=== PATIENT | male | born 1990 | race Caucasian/White ===

== ENCOUNTER 2018-08-27 20:20 | Emergency (ER) | payer OTHER, SELFPAY ==
[2018-08-27] MEDS ORDERED: BUPIVACAINE 0.5% PF 10 ML VIAL ONE (21:21)
[2018-08-27] MEDS ORDERED: LIDOCAINE 1% 20 ML MDV ONE (21:21)
[2018-08-27] MEDS ORDERED: HYDROCODONE/APAP 10/325 TAB ONE (22:01)
--- NOTE | 2018-08-27 22:39 | ER ---
Nurse's Notes [facility] Name: Dameon Amato III Age: 27 yrs Sex: Male : 1990 Arrival Date: 08/27/2018 Time: 20:20 Bed 14 Private MD: Diagnosis: Cutaneous abscess of buttock Presentation: 08/27 20:39 Presenting complaint: Patient states: "I have a possible staff infection on my left jd3 butt cheek. what skyler it is it popped because it is right on the pant line.". Transition of care: patient was not received from another setting of care. Onset of symptoms was August 27, 2018. Risk Assessment: Do you want to hurt yourself or someone else? Patient reports no desire to harm self or others. Initial Sepsis Screen: Does the patient meet any 2 criteria? No. Patient's initial sepsis screen is negative. Does the patient have a suspected source of infection? No. Patient's initial sepsis screen is negative. Care prior to arrival: None. 20:39 Method Of Arrival: Ambulatory j 20:39 Acuity: VALDO 3 jd3 Triage Assessment: 20:53 General: Appears in no apparent distress. Behavior is calm, cooperative. ak1 Historical: - Allergies: 20:41 No Known Allergies; jd3 - Home Meds: 20:41 Flonase Nasal [Active]; jd3 - PMHx: 20:41 None; jd3 - PSHx: 20:41 right shoulder; Hernia repair; wisdom teeth; jd3 - Immunization history:: Adult Immunizations up to date. - Social history:: Smoking status: Patient/guardian denies using tobacco. - Ebola Screening: : Patient negative for fever greater than or equal to 101.5 degrees Fahrenheit, and additional compatible Ebola Virus Disease symptoms. Screenin:53 Abuse screen: Denies threats or abuse. Denies injuries from another. Nutritional ak1 screening: No deficits noted. Tuberculosis screening: No symptoms or risk factors identified. Fall Risk None identified. Assessment: 21:25 General: Appears in no apparent distress. Behavior is calm, cooperative. Pain: ak1 Complains of pain in left lower back and left gluteus yariel. Neuro: No deficits noted. Cardiovascular: No deficits noted. Respiratory: No deficits noted. GI: No signs and/or symptoms were reported involving the gastrointestinal system. : No signs and/or symptoms were reported regarding the genitourinary system. EENT: No signs and/or symptoms were reported regarding the EENT system. Derm: Reports abscess to left buttocks for 3 days. pt stated he "squeezed" the site and had drainage. Musculoskeletal: No signs and/or symptoms reported regarding the musculoskeletal system. 22:49 Reassessment: Patient appears in no apparent distress at this time. No changes from ak1 previously documented assessment. Patient and/or family updated on plan of care and expected duration. Pain level reassessed. pt wound to left buttock dressed with 4X4 and Tegaderm. pt informed of follow up with general sx. Vital Signs: 20:41 BP 148 / 92; Pulse 98; Resp 18 S; Temp 99.0(O); Pulse Ox 99% on R/A; Weight 108.86 kg jd3 (R); Height 6 ft. 1 in. (185.42 cm) (R); Pain 7/10; 21:39 BP 133 / 89; Pulse 88; Resp 18; Temp 99; Pulse Ox 99% on R/A; ak1 22:49 BP 140 / 82; Pulse 87; Resp 18; Temp 98.9(O); Pulse Ox 99% on R/A; Pain 6/10; ak1 20:41 Body Mass Index 31.66 (108.86 kg, 185.42 cm) jd3 ED Course: 20:20 Patient arrived in ED. ag3 20:40 Triage completed. jd3 20:42 Arm band placed on. jd3 20:43 Elisabeth Rees, SOPHIA is Primary Nurse. ak1 20:44 Santosh Lyons PA is PHCP. m 20:45 Gray Tamayo MD is Attending Physician. jmm 20:53 Patient has correct armband on for positive identification. Placed in gown. Bed in low ak1 position. Call light in reach. Side rails up X 1. Adult w/ patient. Pulse ox on. NIBP on. 21:25 Assist provider with I \\T\\ D: of an abscess on left Set up I\\T\\D tray. ak 1 22:38 Jackson Oh MD is Referral Physician. [facility] 22:49 Patient did not have IV access during this emergency room visit. ak1 Administered Medications: 21:24 Drug: Lidocaine (1 %) 20 ml Volume: 20 ml; Route: Infiltration; ak1 21:24 Drug: Marcaine (0.5 %) 10 ml Volume: 10 ml; Route: Infiltration; ak1 21:48 Drug: Lander 10 mg-325 mg 1 tabs Route: PO; ak1 22:34 Follow up: Response: No adverse reaction; Pain is decreased ak1 22:48 Drug: Bactrim (160 mg-800 mg (DS) 1 tablet Route: PO; ak1 22:49 Follow up: Response: No adverse reaction; Medication administered at discharge. ak1 22:48 Drug: Cephalexin 500 mg Route: PO; ak1 22:49 Follow up: Response: No adverse reaction; Medication administered at discharge. ak1 Outcome: 22:38 Discharge ordered by . lucita 22:49 Discharged to home ambulatory, with family. ak1 22:49 Condition: good 22:49 Discharge instructions given to patient, family, Instructed on discharge instructions, follow up and referral plans. no drinking with medication, no driving heavy equipment, medication usage, wound care, Demonstrated understanding of instructions, follow-up care, medications, wound care, Prescriptions given X 3. 22:54 Patient left the ED. ak1 Signatures: Santosh Lyons PA PA jmm Krenek, Amber RN RN ak1 Sanjiv Mandujano RN RN Bonnie Allan ag3 Corrections: (The following items were deleted from the chart) 20:42 20:39 Presenting complaint: Patient states: "I have a possible staff infection on my jd3 left butt cheek." codi
--- NOTE | 2018-08-27 22:39 | EDPHYS ---
Physician Documentation [facility] Age[facility] 27 [facility] Sex: Male : 1990 Arrival Date: 08/27/2018 Time: 20:20 Bed 14 Private MD: ED Physician Gray Tamayo HPI: 08/27 21:00 This 27 yrs old Male presents to ER via Ambulatory with complaints of buttock jmm swelling. 21:00 The patient presents with cellulitis of the left gluteus yariel. jmm 21:00 Onset: The symptoms/episode began/occurred gradually, 4 day(s) ago. Possible cause(s): jmm unknown. Associated signs and symptoms: Pertinent positives: drainage, Pertinent negatives: fever. Modifying factors: the symptoms are alleviated by nothing, the symptoms are aggravated by nothing. The patient has experienced a previous episode, approximately 1 months ago. Historical: - Allergies: 20:41 No Known Allergies; jd3 - Home Meds: 20:41 Flonase Nasal [Active]; jd3 - PMHx: 20:41 None; jd3 - PSHx: 20:41 right shoulder; Hernia repair; wisdom teeth; jd3 - Immunization history:: Adult Immunizations up to date. - Social history:: Smoking status: Patient/guardian denies using tobacco. - Ebola Screening: : Patient negative for fever greater than or equal to 101.5 degrees Fahrenheit, and additional compatible Ebola Virus Disease symptoms. ROS: 21:00 Constitutional: Negative for fever, chills, and weight loss, Cardiovascular: Negative jmm for chest pain, palpitations, and edema, Respiratory: Negative for shortness of breath, cough, wheezing, and pleuritic chest pain. 21:00 Skin: Positive for erythema, swelling. 21:00 All other systems are negative. Exam: 21:00 Constitutional: This is a well developed, well nourished patient who is awake, alert, jmm and in no acute distress. Head/Face: atraumatic. Eyes: EOMI, no conjunctival erythema appreciated ENT: Moist Mucus Membranes Neck: Trachea midline, Supple Chest/axilla: Normal chest wall appearance and motion. Cardiovascular: Regular rate and rhythm. No edema appreciated Respiratory: Normal respirations, no respiratory distress appreciated Abdomen/GI: Non distended, soft Back: Normal ROM 21:00 Skin: erythema and induration noted to the left buttock, draining abscess noted. 21:00 Neuro: Orientation: is normal, Mentation: is normal, Memory: is normal. 21:00 Psych: Behavior/mood is pleasant, cooperative. Vital Signs: 20:41 BP 148 / 92; Pulse 98; Resp 18 S; Temp 99.0(O); Pulse Ox 99% on R/A; Weight 108.86 kg jd3 (R); Height 6 ft. 1 in. (185.42 cm) (R); Pain 7/10; 21:39 BP 133 / 89; Pulse 88; Resp 18; Temp 99; Pulse Ox 99% on R/A; ak1 22:49 BP 140 / 82; Pulse 87; Resp 18; Temp 98.9(O); Pulse Ox 99% on R/A; Pain 6/10; ak1 20:41 Body Mass Index 31.66 (108.86 kg, 185.42 cm) jd3 Procedures: 22:36 I \T\ D: Incision and drainage was performed for an abscess of the left lower back jmm Prepped with Betadine, Anesthetized with 10 ml's 1% Lidocaine. Incised with #11 blade. Drained moderate amount purulent fluid. Packed with iodoform gauze, Dressing: sterile 4x4 gauze, the patient tolerated the procedure well. MDM: 21:00 Patient medically screened. [facility] 22:36 Data reviewed: vital signs, nurses notes. Counseling: I had a detailed discussion with [facility] the patient and/or guardian regarding: the historical points, exam findings, and any diagnostic results supporting the discharge/admit diagnosis, the need for outpatient follow up, to return to the emergency department if symptoms worsen or persist or if there are any questions or concerns that arise at home. 22:36 ED course: Patient is alert and non toxic in appearance in the ED. Abscess was drained [facility] and patient prescribed oral antibiotics. Patient advised to follow up with gen surgery for reevaluation and otherwise given strict return precautions. Patient understood and agrees with the plan of care. . Administered Medications: 21:24 Drug: Lidocaine (1 %) 20 ml Volume: 20 ml; Route: Infiltration; ak1 21:24 Drug: Marcaine (0.5 %) 10 ml Volume: 10 ml; Route: Infiltration; ak1 21:48 Drug: Maunie 10 mg-325 mg 1 tabs Route: PO; ak1 22:34 Follow up: Response: No adverse reaction; Pain is decreased ak1 22:48 Drug: Bactrim (160 mg-800 mg (DS) 1 tablet Route: PO; ak1 22:49 Follow up: Response: No adverse reaction; Medication administered at discharge. ak1 22:48 Drug: Cephalexin 500 mg Route: PO; ak1 22:49 Follow up: Response: No adverse reaction; Medication administered at discharge. ak1 Disposition: 08/27/18 22:38 Discharged to Home. Impression: Cutaneous abscess of buttock. - Condition is Stable. - Discharge Instructions: Skin Abscess, Incision and Drainage. - Prescriptions for Cephalexin 500 mg Oral Capsule - take 1 capsule by ORAL route every 6 hours for 10 days; 40 capsule. Ultram 50 mg Oral Tablet - take 1 tablet by ORAL route every 6 hours As needed; 30 tablet. Bactrim DS 800- 160 mg Oral Tablet - take 1 tablet by ORAL route every 12 hours for 10 days; 20 tablet. - Medication Reconciliation Form, Thank You Letter, Antibiotic Education, Prescription Opioid Use, Work release form form. - Follow up: Jackson Oh MD; When: 2 - 3 days; Reason: Recheck today's complaints, Continuance of care, Re-evaluation by your physician. Addendum: 08/31/2018 16:37 Co-signature as Attending Physician, Gray Tamayo MD I agree with the assessment and t w4 plan of care. Signatures: Santosh Lyons PA PA jmm Krenek, Amber, RN RN ak1 Sanjiv Mandujano RN RN jd3 Gray Tamayo MD MD tw4 Corrections: (The following items were deleted from the chart) 08/27 22:34 22:31 This 27 yrs old Male presents to ER via Ambulatory with complaints of [facility] buttock swelling. [facility] 22:54 22:38 08/27/2018 22:38 Discharged to Home. Impression: Cutaneous abscess of buttock. ak1 Condition is Stable. Forms are Medication Reconciliation Form, Thank You Letter, Antibiotic Education, Prescription Opioid Use. Follow up: Jackson Oh; When: 2 - 3 days; Reason: Recheck today's complaints, Continuance of care, Re-evaluation by your physician. marianam
[2018-08-27] MEDS ORDERED: CEPHALEXIN 250 MG CAP ONE (22:53)
[2018-08-27] MEDS ORDERED: SMZ./TMP. 800/160 MG TABLET ONE (22:53)
== END 2018-08-27 22:54 | disposition home or self-care (01) ==
LOC: ER 20:20
PROC: 0J990ZZ Drainage of Buttock Subcutaneous Tissue and Fascia, Open Approach (ICD-10-PCS; principal; 2018-08-27)
DX: L02.31 Cutaneous abscess of buttock (principal)
CPT/HCPCS: 99284

== ENCOUNTER → 2023-03-19 | Emergency (ER) | payer BC ==
[~2023-03-19] MED LIST: HYDROCODONE/APAP 10/325 TAB ONE; HYDROMORPHONE HCL 1 MG/ML INJ ONE; KETOROLAC 30 MG/ML INJ ONE; METOCLOPRAMIDE 10 MG/2mL INJ ONE; MORPHINE 4 MG/ML SYR ONE; NA CHLORIDE 0.9% 1,000 ML ONE; ONDANSETRON 4 MG/2 ML VIAL ONE
[2023-03-19 11:15] LABS: Hematocrit 48.4 % (39.6-49.0); Lymphocytes % 12.9 % (15.3-44.8); MCV 87.1 fL (80-100); MPV 7.3 fL (7.6-11.3); Platelets 237 thou/uL (152-406); RBC Red Blood Cell Count 5.55 M/uL (4.33-5.43)
--- NOTE | 2023-03-19 11:26 | RAD REPORT ---
EXAM DESCRIPTION: CT - Stone Protocol - 03/19/2023 10:59 am CLINICAL HISTORY: FLANK PAIN COMPARISON: No comparisons TECHNIQUE: Thin cut axial CT imaging of the abdomen and pelvis was performed without IV contrast. Mu ltiplanar reformats were generated and reviewed. All CT scans are performed using dose optimization technique as appropriate and may include automated exposure control or mA/KV adjustment according to patient size. FINDINGS: No suspicious findings in the lung bases. The liver, spleen, adrenal glands, and pancreas show no suspicious findings. Gallbladder shows mildly echogenic sludge, without radiopaque calculi. It is slightly contracted. Symmetric renal contour, without suspicious parenchymal findings within limits of noncontrast techniq ue. Mild right hydroureteronephrosis. 3 millimeter right distal ureter calculus, within 2-3 cm above the ureterovesical junction. Other nonobstructing right renal calculi, largest measuring 5 mm at the right interpolar region. No dilated bowel loops or bowel wall thickening. No free air, free fluid or inflammatory stranding. S mall right inguinal hernia containing fat. No mass or bulky lymphadenopathy. The urinary bladder is d ecompressed limiting evaluation. No suspicious bony findings. IMPRESSION: Mild right hydroureteronephrosis. 3 millimeter right distal ureter calculus, within 2-3 cm above the ureterovesical junction. Other nonobstructing right renal calculi up to 5 mm. The findings were communicated to Bo Navas on 03/19/2023 at 11:23 hours.
[2023-03-19 11:34] LABS: Albumin 4.1 g/dL (3.4-5.0); Potassium 3.8 mEq/L (3.5-5.1); Protein, Total 7.5 g/dL (6.4-8.2)
[2023-03-19 12:53] LABS: Specific Gravity 1.011 (1.005-1.030); Urine Bacteria None Seen /HPF (<20); Urine Bilirubin NEGATIVE (Negative); Urine Blood 3+ (OVER) (Negative); Urine Clarity Turbid (Clear); Urine Color Light-Yellow (Yellow); Urine Glucose NEGATIVE (Negative); Urine Mucus 4+ /HPF (None Seen); Urine Protein NEGATIVE (Negative); Urine RBC >50 /HPF (None Seen); Urine Urobilinogen Normal (Normal); Urine pH 5.5 (5.0-7.0)
--- NOTE | 2023-03-19 13:43 | ER ---
Nurse's Notes [facility] Name: Dameon Amato III Age: 32 yrs Sex: Male : 1990 Arrival Date: 03/19/2023 Time: 10:44 Bed 8 Private MD: Diagnosis: 3 mm right-sided distal ureter kidney stone Presentation: 03/19 10:53 Chief complaint: Severe right flank pain, difficulty urinating, blood in urine, and N/V hb since this morning. Sent from urgent care, received Toradol and Zofran PIECE MARKER SMALL ARMS per mother at bedside. Coronavirus screen: At this time, the client does not indicate any symptoms associated with coronavirus-19. Ebola Screen: No symptoms or risks identified at this time. Initial Sepsis Screen: Does the patient meet any 2 criteria? No. Patient's initial sepsis screen is negative. Does the patient have a suspected source of infection? No. Patient's initial sepsis screen is negative. Risk Assessment: Do you want to hurt yourself or someone else? Patient reports no desire to harm self or others. Onset of symptoms was March 19, 2023. 10:53 Method Of Arrival: Ambulatory hb 10:53 Acuity: VALDO 3 hb Historical: - Allergies: 10:55 Sulfa (Sulfonamide Antibiotics); hb 10:55 Morphine; hb - Home Meds: 10:55 Flonase Nasal [Active]; hb - PMHx: 10:55 Kidney stone; hb - PSHx: 10:55 Hernia Repair; Shoulder - Right; hb - Immunization history:: Adult Immunizations up to date. - Social history:: Smoking status: Patient denies any tobacco usage or history of. Screenin:16 [facility] ED Fall Risk Assessment (Adult) History of falling in the last 3 months, kc6 including since admission No falls in past 3 months (0 pts) Confusion or Disorientation No (0 pts) Intoxicated or Sedated No (0 pts) Impaired Gait No (0 pts) Mobility Assist Device Used No (0 pt) Altered Elimination No (0 pt) Score/Fall Risk Level 0 - 2 = Low Risk. Abuse screen: Denies threats or abuse. Denies injuries from another. Nutritional screening: No deficits noted. Tuberculosis screening: No symptoms or risk factors identified. Assessment: 11:40 General: Appears in no apparent distress. uncomfortable, well groomed, well developed, kc6 Behavior is cooperative, appropriate for age, crying, restless. Pain: Complains of pain in back and abdomen Pain does not radiate. Pain currently is 10 out of 10 on a pain scale. Noted to be crying, grimacing, guarding, moaning, restless. Neuro: Level of Consciousness is awake, alert, obeys commands, Oriented to person, place, time, situation, Appropriate for age. Cardiovascular: Capillary refill < 3 seconds. Respiratory: Airway is patent Trachea midline Respiratory effort is even, unlabored, Respiratory pattern is regular, symmetrical. GI: Bowel sounds present X 4 quads. Abd is soft X 4 quads Reports nausea, vomiting, Patient currently denies diarrhea. : No signs and/or symptoms were reported regarding the genitourinary system. EENT: No signs and/or symptoms were reported regarding the EENT system. Derm: No signs and/or symptoms reported regarding the dermatologic system. Skin is intact, is healthy with good turgor, Skin is pink, warm \T\ dry. Musculoskeletal: No signs and/or symptoms reported regarding the musculoskeletal system. Circulation, motion, and sensation intact. Capillary refill < 3 seconds, Range of motion: intact in all extremities. 11:51 General: Appears in no apparent distress. uncomfortable. Pain: Noted to be crying, kc6 grimacing, guarding, moaning, restless. GI: Pt is actively vomiting bile. 14:11 Reassessment: Patient appears in no apparent distress at this time. No changes from kc6 previously documented assessment. Patient and/or family updated on plan of care and expected duration. Pain level reassessed. Patient is alert, oriented x 3, equal unlabored respirations, skin warm/dry/pink. Vital Signs: 10:53 BP 163 / 119; Pulse 75; Resp 18; Temp 98.3; Pulse Ox 100% on R/A; Weight 113.4 kg; hb Height 6 ft. 1 in. ; Pain 10/10; 11:41 BP 168 / 111; Pulse 78; Resp 19 S; Pulse Ox 100% on R/A; kc6 12:35 BP 168 / 103; kc6 13:01 BP 149 / 95; Pulse 82; Pulse Ox 95% ; ll1 14:12 BP 158 / 98; Pulse 80; Resp 16 S; Pulse Ox 98% on R/A; Pain 4/10; kc6 10:53 Body Mass Index 32.98 (113.40 kg, 185.42 cm) hb 10:53 Pain Scale: Adult hb 14:12 Pain Scale: Adult kc6 ED Course: 10:46 Patient arrived in ED. mr 10:47 Bo Navas MD is Attending Physician. kdr 10:55 Triage completed. hb 10:56 Arm band placed on. hb 10:59 CT Stone Protocol In Process Unspecified. EDMS 11:15 Ni Santana, RN is Primary Nurse. kc6 11:16 Patient has correct armband on for positive identification. Bed in low position. Call kc6 light in reach. Side rails up X 1. Adult w/ patient. Client placed on continuous cardiac and pulse oximetry monitoring. NIBP monitoring applied. 11:16 Inserted saline lock: 20 gauge in left antecubital area, using aseptic technique. Blood kc6 collected. Patient maintains SpO2 saturation greater than 95% on room air. 14:12 No provider procedures requiring assistance completed. IV discontinued, intact, kc6 bleeding controlled, No redness/swelling at site. Pressure dressing applied. Administered Medications: 11:15 Drug: NS 0.9% IV 1000 ml IV at 1 bolus Per protocol; 1000 mL bolus Route: IV; Rate: 1 kc6 bolus; Site: left antecubital; 11:15 Drug: morphine IVP or IV 4 mg IVP once over 4 mins Route: IVP; Infused Over: 4 mins; kc6 Site: left antecubital; 11:41 Follow up: Response: No adverse reaction; Nausea is increased; Vomiting decreased kc6 11:16 Drug: Ondansetron IVP 4 mg IVP once; over 2 minutes Route: IVP; Site: left antecubital; kc6 11:41 Follow up: Response: No adverse reaction; Nausea unchanged; Vomiting decreased kc6 11:51 Drug: Ketorolac IVP 15 mg IVP once Route: IVP; Site: left antecubital; kc6 12:35 Follow up: Response: No adverse reaction; Pain is unchanged, physician notified kc6 11:51 Drug: metoCLOPramide IVP 10 mg IVP once; over 1 to 2 minutes Route: IVP; Site: left kc6 antecubital; 12:35 Follow up: Response: No adverse reaction; Nausea is decreased; Vomiting decreased kc6 12:35 Drug: HYDROmorphone IVP 1 mg IVP once Route: IVP; Site: left antecubital; kc6 14:02 Follow up: Response: No adverse reaction; Pain is decreased; RASS: Alert and Calm (0) kc6 14:02 Drug: Juncos PO 10 mg-325 mg 1 tabs PO once Route: PO; kc6 14:11 Follow up: Response: No adverse reaction; Pain is decreased kc6 Medication: 14:12 VIS not applicable for this client. kc6 Outcome: 13:43 Discharge ordered by . kdr 14:12 Discharged to home ambulatory, with family, kc6 14:12 Condition: improved 14:12 Discharge instructions given to patient, Instructed on discharge instructions, follow up and referral plans. medication usage, Demonstrated understanding of instructions, follow-up care, medications, Prescriptions given X 4, 14:12 Patient left the ED. kc6 Signatures: Dispatcher [employer] EDMS Bo Navas MD MD kdr Rivera, Mary, Marky Negro mr Roxanna Dubon, RN RN hb Mone Stephen RN RN ll1 Ni Santana, RN RN kc6 Corrections: (The following items were deleted from the chart) 10:56 10:55 PSHx: None; hb hb
--- NOTE | 2023-03-19 13:43 | EDPHYS ---
Physician Documentation [facility] Name: Dameon Amato III Age: 32 yrs Sex: Male : 1990 Arrival Date: 03/19/2023 Time: 10:44 Bed 8 Private MD: ED Physician Bo Navas HPI: 03/19 16:51 This 32 yrs old Male presents to ER via Ambulatory with complaints of Possible Kidney kdr Stone. 16:51 We did patient presents to the ED with severe right flank pain and difficulty kdr urinating. He also states he is has had blood in his urine. In addition he had some nausea and vomiting since this morning. This all began about 2 hours prior to arrival. Patient had been seen in urgent care and received Toradol and Zofran prior to arrival. Patient's mother is at the bedside. Patient has a history of kidney stones.. Onset: The symptoms/episode began/occurred suddenly, 2 hour(s) ago. Severity of symptoms: At their worst the symptoms were moderate severe incapacitating just prior to arrival, in the emergency department the symptoms are unchanged. The patient has experienced similar episodes in the past, a few times. The patient has not recently seen a physician. Historical: - Allergies: 10:55 Sulfa (Sulfonamide Antibiotics); hb 10:55 Morphine; hb - Home Meds: 10:55 Flonase Nasal [Active]; hb - PMHx: 10:55 Kidney stone; hb - PSHx: 10:55 Hernia Repair; Shoulder - Right; hb - Immunization history:: Adult Immunizations up to date. - Social history:: Smoking status: Patient denies any tobacco usage or history of. ROS: 16:51 Constitutional: Negative for fever, chills, and weight loss, Eyes: Negative for injury, kdr pain, redness, and discharge, ENT: Negative for injury, pain, and discharge, Neck: Negative for injury, pain, and swelling, Cardiovascular: Negative for chest pain, palpitations, and edema, Respiratory: Negative for shortness of breath, cough, wheezing, and pleuritic chest pain, Back: Negative for injury and pain, MS/Extremity: Negative for injury and deformity, Skin: Negative for injury, rash, and discoloration, Neuro: Negative for headache, weakness, numbness, tingling, and seizure activity. Psych: Negative for depression, anxiety, suicide ideation, homicidal ideation, and hallucinations, Allergy/Immunology: Negative for hives, rash, and allergies, Endocrine: Negative for neck swelling, polydipsia, polyuria, polyphagia, and marked weight changes, Hematologic/Lymphatic: Negative for swollen nodes, abnormal bleeding, and unusual bruising, 16:51 Abdomen/GI: Positive for nausea and vomiting, Flank pain right, Negative for diarrhea, constipation, abdominal cramps, abdominal distension, anorexia, dysphagia, hematemesis, black/tarry stool, rectal pain, rectal bleeding, bowel incontinence, 16:51 : Positive for hematuria, Negative for urinary frequency, small amounts, burning with urination, difficulty urinating, bladder incontinence, foul smelling urine, penile discharge, Exam: 16:51 Constitutional: This is a well developed, well nourished patient who is awake, alert, kdr and in moderate distress. Head/Face: Normocephalic, atraumatic. Eyes: Pupils equal round and reactive to light, extra-ocular motions intact. Lids and lashes normal. Conjunctiva and sclera are non-icteric and not injected. Cornea within normal limits. Periorbital areas with no swelling, redness, or edema. Neck: Trachea midline, no thyromegaly or masses palpated, and no cervical lymphadenopathy. Supple, full range of motion without nuchal rigidity, or vertebral point tenderness. No Meningismus. Chest/axilla: Normal chest wall appearance and motion. Nontender with no deformity. No lesions are appreciated. Cardiovascular: Regular rate and rhythm with a normal S1 and S2. No gallops, murmurs, or rubs. Normal PMI, no JVD. No pulse deficits. Respiratory: Lungs have equal breath sounds bilaterally, clear to auscultation and percussion. No rales, rhonchi or wheezes noted. No increased work of breathing, no retractions or nasal flaring. Back: No spinal tenderness. No costovertebral tenderness. Full range of motion. Skin: Warm, dry with normal turgor. Normal color with no rashes, no lesions, and no evidence of cellulitis. MS/ Extremity: Pulses equal, no cyanosis. Neurovascular intact. Full, normal range of motion. Neuro: Awake and alert, GCS 15, oriented to person, place, time, and situation. Cranial nerves II-XII grossly intact. Motor strength 5/5 in all extremities. Sensory grossly intact. Cerebellar exam normal. Normal gait. Psych: Awake, alert, with orientation to person, place and time. Behavior, mood, and affect are within normal limits. 16:51 Abdomen/GI: Inspection: obese Right flank pain, Vital Signs: 10:53 BP 163 / 119; Pulse 75; Resp 18; Temp 98.3; Pulse Ox 100% on R/A; Weight 113.4 kg; hb Height 6 ft. 1 in. ; Pain 10/10; 11:41 BP 168 / 111; Pulse 78; Resp 19 S; Pulse Ox 100% on R/A; kc6 12:35 BP 168 / 103; kc6 13:01 BP 149 / 95; Pulse 82; Pulse Ox 95% ; ll1 14:12 BP 158 / 98; Pulse 80; Resp 16 S; Pulse Ox 98% on R/A; Pain 4/10; kc6 10:53 Body Mass Index 32.98 (113.40 kg, 185.42 cm) hb 10:53 Pain Scale: Adult hb 14:12 Pain Scale: Adult kc6 MDM: 13:43 Patient medically screened. kdr 16:51 Data reviewed: vital signs, nurses notes, lab test result(s), radiologic studies. ED kdr course: The patient had considerable improvement with the interventions given. The patient felt stable and able to go home with the prescribed medication regimen. The patient was otherwise happy with the care provided the plan for discharge and follow-up. 03/19 10:48 Order name: CBC with Diff; Complete Time: 13:04 kdr 03/19 10:48 Order name: CMP; Complete Time: 13:04 kdr 03/19 10:48 Order name: Lipase; Complete Time: 13:04 kdr 03/19 12:35 Order name: Urinalysis w/ reflexes; Complete Time: 13:04 kc6 03/19 10:48 Order name: CT Stone Protocol; Complete Time: 13:04 kdr 03/19 10:48 Order name: IV Saline Lock; Complete Time: 11:15 kdr 03/19 10:48 Order name: Labs collected and sent; Complete Time: 11:15 kdr Administered Medications: 11:15 Drug: NS 0.9% IV 1000 ml IV at 1 bolus Per protocol; 1000 mL bolus Route: IV; Rate: 1 kc6 bolus; Site: left antecubital; 11:15 Drug: morphine IVP or IV 4 mg IVP once over 4 mins Route: IVP; Infused Over: 4 mins; kc6 Site: left antecubital; 11:41 Follow up: Response: No adverse reaction; Nausea is increased; Vomiting decreased kc6 11:16 Drug: Ondansetron IVP 4 mg IVP once; over 2 minutes Route: IVP; Site: left antecubital; kc6 11:41 Follow up: Response: No adverse reaction; Nausea unchanged; Vomiting decreased kc6 11:51 Drug: Ketorolac IVP 15 mg IVP once Route: IVP; Site: left antecubital; kc6 12:35 Follow up: Response: No adverse reaction; Pain is unchanged, physician notified kc6 11:51 Drug: metoCLOPramide IVP 10 mg IVP once; over 1 to 2 minutes Route: IVP; Site: left kc6 antecubital; 12:35 Follow up: Response: No adverse reaction; Nausea is decreased; Vomiting decreased kc6 12:35 Drug: HYDROmorphone IVP 1 mg IVP once Route: IVP; Site: left antecubital; kc6 14:02 Follow up: Response: No adverse reaction; Pain is decreased; RASS: Alert and Calm (0) kc6 14:02 Drug: [place] PO 10 mg-325 mg 1 tabs PO once Route: PO; kc6 14:11 Follow up: Response: No adverse reaction; Pain is decreased kc6 Disposition Summary: 03/19/23 13:43 Discharge Ordered Notes: Location: Home kdr Problem: an acute exacerbation kdr Symptoms: have improved kdr Condition: Stable kdr Diagnosis - 3 mm right-sided distal ureter kidney stone kdr Followup: kdr - With: Private Physician - When: 2 - 3 days - Reason: If symptoms return, Further diagnostic work-up, Recheck today's complaints, Continuance of care, Re-evaluation by your physician Discharge Instructions: - Discharge Summary Sheet kdr - Kidney Stones, [id number] kdr - Dietary Guidelines to Help Prevent Kidney Stones kdr Forms: - Medication Reconciliation Form kdr - Thank You Letter kdr - Antibiotic Education kdr - Prescription Opioid Use kdr - Patient Portal Instructions kdr - Leadership Thank You Letter kdr Prescriptions: - Flomax 0.4 mg Oral capsule - take 1 capsule ORAL route every 24 hours; 10 capsule; Refills: 0, Product kdr Selection Permitted - acetaminophen-codeine 300-30 mg Oral tablet - take 1 tablet ORAL route 4 times per day as needed for pain; 12 tablet; kdr Refills: 0, Product Selection Permitted - Zofran 4 mg Oral tablet - take 1 tablet ORAL route every 4-6 hours As needed; 12 tablet; Refills: 0, kdr Product Selection Permitted - Cipro 500 mg Oral tablet - take 1 tablet ORAL route every 12 hours for 3 days; 6 tablet; Refills: 0, kdr Product Selection Permitted Signatures: Dispatcher [employer] EDBo Stephens MD MD kdr Roxanna Dubon RN RN hb Ni Santana RN RN kc6 Corrections: (The following items were deleted from the chart) 10:56 10:55 PSHx: None; hb hb
[2023-03-19 14:39] VITALS: BP 158/98; TEMP 98.3; O2SAT 98
== END ==
LOC: ER 10:44
DX: N20.0 Calculus of kidney (principal); Z87.442 Personal history of urinary calculi; Z88.2 Allergy status to sulfonamides; Z88.5 Allergy status to narcotic agent
CPT/HCPCS: 85025; 81001; 36415; 83690; 80053; 76377; 74176; 96375; 96374; 99285; J2765; J1170; J2405; J7030